=== PATIENT | male | born 1995 | race Caucasian/White ===

== ENCOUNTER 2019-11-30 13:15 | Emergency (ER) | payer OTHER ==
[~2019-11-30] VITALS: Ht 170.2 cm; Wt 63.5 kg
== END 2019-11-30 19:06 | disposition designated cancer center or children's hospital (05) ==
LOC: EDBD 13:15 → ER 13:15
DX: S92.002A Unspecified fracture of left calcaneus, initial encounter for closed fracture (principal); W18.39XA Other fall on same level, initial encounter; Y93.89 Activity, other specified; Y92.69 Other specified industrial and construction area as the place of occurrence of the external cause; Y99.8 Other external cause status